=== PATIENT | female | born 1995 | race Caucasian/White ===

== ENCOUNTER 2023-05-12 08:12 | Inpatient (IN) | payer MEDICAID ==
[2023-05-12] MEDS ORDERED: Prochlorperazine 10 MG/2 ML SDV IVPUSH ONE (08:45)
[2023-05-12] MEDS: Sodium Chloride 0.9% 1,000 ML IV SCH ×3 (08:58→22:06)
[2023-05-12 09:05] LABS: BASOPHILS ABSOLUTE AUTO 0.08 K/uL (0.00-0.10); BASOPHILS PERCENT AUTO 0.2 % (0.1-1.3); EOSINOPHILS ABSOLUTE AUTO 0.32 K/uL (0.00-0.40); HEMATOCRIT 40.7 % (34.3-46.0); HEMOGLOBIN 13.9 g/dL (11.2-15.5); IMMATURE GRAN ABSOLUTE AUTO 0.29 K/uL (0.00-0.23); IMMATURE GRAN PERCENT AUTO 0.9 % (0.0-0.7); LYMPHOCYTES ABSOLUTE AUTO 0.95 K/uL (0.8-3.3); LYMPHOCYTES PERCENT AUTO 2.8 % (11.4-47.7); MEAN CORPUSCULAR HEMOGLOBIN 28.6 pg (31.6-35.5); MEAN CORPUSCULAR HGB CONC 34.2 g/dL (31.6-35.5); MEAN CORPUSCULAR VOLUME 83.7 fL (81.4-99.0); MONOCYTES ABSOLUTE AUTO 0.94 K/uL (0.20-0.90); MONOCYTES PERCENT AUTO 2.8 % (3.3-12.6); NEUTROPHILS ABSOLUTE AUTO 30.76 K/uL (1.0-7.6); NEUTROPHILS PERCENT AUTO 92.3 % (40.0-78.1); PLATELET COUNT,PLT 258 K/uL (130-375); RED BLOOD CELL COUNT 4.86 M/uL (3.77-5.24)
[2023-05-12 09:08] LABS: WHITE BLOOD CELL COUNT,WBC 33.3 K/uL (3.2-11.0)
[2023-05-12] MEDS ORDERED: cefTRIAXone 1 GM in Sodium Chloride 0.9% 50 ML IV ONE (09:26)
[2023-05-12] MEDS ORDERED: Sodium Chloride 0.9% 1,000 ML IV SCH (10:00)
[2023-05-12 10:11] LABS: ALANINE AMINOTRANSFERASE,ALT 10 U/L (12-78); ALBUMIN 3.5 g/dL (3.4-5.0); ALKALINE PHOSPHATASE 66 U/L (46-116); ASPARTATE AMNIOTRANSFERASE,AST 18 U/L (15-37); BILIRUBIN TOTAL 0.6 mg/dL (0.2-1.0); BLOOD UREA NITROGEN,BUN 10 mg/dL (7-18); CALCIUM 8.2 mg/dL (8.5-10.1); CARBON DIOXIDE,CO2 27 mmol/L (21-32); CHLORIDE,CL 100 mmol/L (100-108); CREATININE 1.1 mg/dL (0.6-1.0); EST CRCL DRUG DOSING (CG) 57.97 mL/min; ESTIMATED GFR 71 mL/min (>60); GLUCOSE RANDOM 221 mg/dL (74-106); PROTEIN TOTAL,TP 7.1 g/dL (6.4-8.2); SODIUM,NA 138 mmol/L (140-148)
[2023-05-12 10:13] LABS: ANION GAP 13.8 mmol/L (5.0-14.0); POTASSIUM,K 2.8 mmol/L (3.6-5.2)
[2023-05-12] MEDS ORDERED: NS + KCl 20mEq/L 1,000 ML IV SCH (10:15)
[2023-05-12 12:08] LABS: APPEARANCE,URINE CLOUDY (CLEAR); BILIRUBIN,URINE NEGATIVE (NEGATIVE); COLOR,URINE YELLOW (YELLOW); GLUCOSE,URINE 250 mg/dL (NEGATIVE); KETONES,URINE NEGATIVE (NEGATIVE); LEUKOCYTE ESTERASE,URINE NEGATIVE (NEGATIVE); NITRITE,URINE POSITIVE (NEGATIVE); OCCULT BLOOD,URINE SMALL (NEGATIVE); PH,URINE 5.5 (5.0-8.0); PROTEIN,URINE 100 mg/dL (NEGATIVE); UROBILINOGEN,URINE 0.2 EU/dL (0.2-1.0)
[2023-05-12 12:20] LABS: RBC,URINE 0-5 (0-5)
[2023-05-12 12:21] LABS: AMORPHOUS SEDIMENT,URINE RARE; BACTERIA,URINE MANY; EPITHELIAL CELLS,URINE FEW; MUCUS,URINE MODERATE
[2023-05-12] MEDS ORDERED: Potassium Chloride 20 MEQ Tab.ER PO ONE ×2 (12:51→17:00)
[2023-05-12] MEDS: Potassium Chloride 10 MEQ in Premix Bag 1 BAG IV SCH ×5 (14:11→18:33)
[2023-05-12] MEDS ORDERED: LORazepam 2 MG/ML SDV IVPUSH PRN (14:30)
[2023-05-12] MEDS ORDERED: Polyethylene Glycol 3350 Powder 17 GM Packet PO PRN (14:30)
[2023-05-12] MEDS ORDERED: Sodium Chloride 0.9% 10 ML Syringe FLUSH PRN (14:30)
[2023-05-12] MEDS ORDERED: methylPREDNISolone Sodium Succinate 40 MG/1 ML SDV IVPUSH SCH (14:30)
[2023-05-12] MEDS ORDERED: Ondansetron 4 MG/2 ML SDV IV PRN (14:30)
[2023-05-12] MEDS ORDERED: Albuterol/Ipratropium 3.0-0.5 MG/3 ML Neb Soln NEB PRN (14:30)
[2023-05-12] MEDS ORDERED: Albuterol 0.083% 2.5 MG/3 ML Neb Soln NEB PRN (14:30)
[2023-05-12] MEDS ORDERED: Acetaminophen 325 MG Tab PO PRN (14:30)
[2023-05-12] MEDS: Formoterol/Mometasone 200-5 MCG 8.8 GM Inhaler IH SCH ×3 (14:45→21:37)
[2023-05-12] MEDS: methylPREDNISolone Sodium Succinate 40 MG/1 ML SDV IVPUSH SCH (23:19)
[2023-05-13 05:56] LABS: HEMATOCRIT 36.9 % (34.3-46.0); HEMOGLOBIN 12.1 g/dL (11.2-15.5); IMMATURE GRAN ABSOLUTE AUTO 0.03 K/uL (0.00-0.23); IMMATURE GRAN PERCENT AUTO 0.3 % (0.0-0.7); LYMPHOCYTES ABSOLUTE AUTO 0.59 K/uL (0.8-3.3); LYMPHOCYTES PERCENT AUTO 6.8 % (11.4-47.7); MEAN CORPUSCULAR HEMOGLOBIN 28.1 pg (31.6-35.5); MEAN CORPUSCULAR HGB CONC 32.8 g/dL (31.6-35.5); MEAN CORPUSCULAR VOLUME 85.6 fL (81.4-99.0); MONOCYTES ABSOLUTE AUTO 0.07 K/uL (0.20-0.90); MONOCYTES PERCENT AUTO 0.8 % (3.3-12.6); NEUTROPHILS PERCENT AUTO 92.1 % (40.0-78.1); PLATELET COUNT,PLT 221 K/uL (130-375); RED BLOOD CELL COUNT 4.31 M/uL (3.77-5.24); WHITE BLOOD CELL COUNT,WBC 8.7 K/uL (3.2-11.0)
[2023-05-13] MEDS: Sodium Chloride 0.9% 1,000 ML IV SCH (06:02)
[2023-05-13 06:12] LABS: CREATININE 0.7 mg/dL (0.6-1.0); EST CRCL DRUG DOSING (CG) 91.09 mL/min; POTASSIUM,K 4.8 mmol/L (3.6-5.2)
[2023-05-13 06:13] LABS: ANION GAP 10.8 mmol/L (5.0-14.0)
[2023-05-13] MEDS: Formoterol/Mometasone 200-5 MCG 8.8 GM Inhaler IH SCH (07:04)
[2023-05-13] MEDS: methylPREDNISolone Sodium Succinate 40 MG/1 ML SDV IVPUSH SCH (07:06)
[2023-05-13] MEDS ORDERED: Venlafaxine 37.5 MG Cap.ER PO SCH (09:00)
[2023-05-13] MEDS ORDERED: cefTRIAXone 1 GM in Sodium Chloride 0.9% 50 ML IV SCH (11:00)
== END 2023-05-13 12:02 | disposition home or self-care (01) | DRG 202 ==
LOC: JP.ED 08:12 → JP.MS 12:52
PROVIDERS: ADMIT Hospitalist; ATTEND Hospitalist
DX: J45.901 Unspecified asthma with (acute) exacerbation (principal); N30.01 Acute cystitis with hematuria; R09.02 Hypoxemia; E87.6 Hypokalemia; F41.9 Anxiety disorder, unspecified; F32.A Depression, unspecified; F15.90 Other stimulant use, unspecified, uncomplicated; Z11.52 Encounter for screening for COVID-19; Z90.89 Acquired absence of other organs
CPT/HCPCS: 36415; 71046; 71046-26; 80048; 80053; 81001; 81025; 84145; 85025; 87040; 87086; 94640; 96361; 96365; 96366; 96367; 96375; 99222; 99238; 99285-25; A9270-GY; J0696; J0780; J2920; J3480; J3490; J7030; U0002